=== PATIENT | male | born 1980 | race Asian ===

== ENCOUNTER 2022-09-05 18:24 | Emergency (ER) | payer SELFPAY ==
[~2022-09-05 18:24] MED LIST: Iopamidol 370 76% 100 ML VIAL ONE
[2022-09-05] MEDS ORDERED: Mag-Al Plus 1200 MG/1200 MG/120 MG/30 ML UDCUP ONE (18:34)
[2022-09-05] MEDS ORDERED: Lidocaine Viscous Sol 2% 15 ml UD Cup ONE (18:34)
[2022-09-05] MEDS ORDERED: Famotidine 20 MG TAB ONE (19:10)
[2022-09-05] MEDS ORDERED: Famotidine/PF 20 mg/2ml Vial ONE (19:11)
[2022-09-05] MEDS ORDERED: Sodium Chloride 0.9% 50 ML ONE (19:13)
[2022-09-05 19:31] LABS: Bilirubin Negative (Negative); Blood, Urine Negative (Negative); Clarity Clear (Clear); Glucose, Urine (Dipstick) Negative (Negative); Ketone, Urine Negative (Negative); Leukocyte Negative (Negative); Nitrite Negative (Negative); Protein, Urine (Dipstick) Negative (Neg-Trace); Specific Gravity, Urine 1.015 (1.005-1.030); Urobilinogen 0.2 mg/dL (Less than 2); pH, Urine 6.5 (5.0-9.0)
[2022-09-05 19:32] LABS: ALT (SGPT) 41 U/L (8-55); AST (SGOT) 79 U/L (5-34); Albumin 4.1 g/dL (3.5-5.0); Alkaline Phosphatase 59 U/L (40-110); Anion Gap 19 mmol/L (10-20); BUN (Urea Nitrogen) 6 mg/dL (8.9-20.6); Bilirubin, Total 0.3 mg/dL (0.2-1.2); Calc. Creatinine Clearance 0 mL/min (70-130); Calcium 8.9 mg/dL (7.8-10.44); Carbon Dioxide 21 mmol/L (22-29); Chloride 102 mmol/L (98-107); Estimated GFR 110; Globulin 2.9 g/dL (2.4-3.5); Glucose 84 mg/dL (70-105); Potassium 3.8 mmol/L (3.5-5.1); Sodium 138 mmol/L (136-145)
[2022-09-05] MEDS ORDERED: Lactated Ringer's 1,000 ML ONE (19:33)
[2022-09-05 19:36] LABS: #Basophils 0.1 thou/uL (0.0-0.2); #Lymphocytes 0.5 thou/uL (1.20-3.40); #Monocytes 0.4 thou/uL (0.11-0.59); #Neutrophils 4.4 thou/uL (1.40-6.50); %Basophils 0.9 % (0.0-1.0); %Eosinophils 0.6 % (0.0-10.0); %Lymphocytes 9.8 % (21.0-51.0); %Monocytes 7.6 % (0.0-10.0); Hemoglobin 10.4 g/dL (14.0-18.0); Mean Corpuscular HGB CONC 29.5 g/dL (32.0-36.0); Mean Corpuscular Hemoglobin 21.4 pg (27.0-31.0); Mean Corpuscular Volume 72.7 fL (78.0-98.0); Mean Platelet Volume 6.5 fL (7.4-10.4); Platelet Count 240 thou/uL (130-400); RBC Distribution Width 17.2 % (11.5-14.5); Red Blood Cell (RBC) Count 4.86 mill/uL (4.70-6.10); White Blood Cell (WBC) Count 5.4 thou/uL (4.8-10.8)
[2022-09-05 19:37] LABS: Anisocytosis SLIGHT = 6-15 cells (100X) (0-5/hpf); Hypochromia SLIGHT = 6-15 cells (100X) (0-5/hpf); MDiff Complete? YES; Microcytosis SLIGHT = 6-15 cells (100X) (0-5/hpf); Polychromasia SLIGHT = 2-3 cells (100X) (0-2/hpf)
[2022-09-05 21:26] LABS: Lactic Acid 3.2 mmol/L (0.5-2.2)
== END 2022-09-05 21:53 | disposition home or self-care (01) ==
LOC: MADERS 18:24
DX: K29.00 Acute gastritis without bleeding (principal); K63.89 Other specified diseases of intestine; K80.20 Calculus of gallbladder without cholecystitis without obstruction; K76.0 Fatty (change of) liver, not elsewhere classified; I10 Essential (primary) hypertension; R74.01 Elevation of levels of liver transaminase levels; D50.9 Iron deficiency anemia, unspecified; F17.220 Nicotine dependence, chewing tobacco, uncomplicated
CPT/HCPCS: 36415; 74177; 80053; 81003; 83605; 83690; 84484; 85025; 93005; 94760; 96361; 96365; J7120; Q9967; S0028